=== PATIENT | male | born 1980 | race Two or more races ===

== ENCOUNTER 2021-02-19 06:12 | Emergency (ER) | payer SELFPAY ==
[2021-02-19] MEDS ORDERED: predniSONE 20 MG Tab PO ONE (07:55)
--- NOTE | 2021-02-19 07:58 | EDM.PDOC ---
ED HPI GENERAL MEDICAL PROBLEM - General Chief Complaint: Skin Complaint Stated Complaint: RASH ALL OVER LEGS AND BACK Time Seen by Provider: 02/19/21 07:17 - History of Present Illness INITIAL COMMENTS - FREE TEXT/NARRATIVE: CHIEF COMPLAINT(S): Rash HISTORY OF PRESENT ILLNESS: This is a 40-year-old man without any significant past medical history who comes to the emergency department with a chief complaint of rash. The patient states that for the last 5 days he has been experiencing a rash which is located on his bilateral thighs and his right lower back. He states that it is itching and there are little bumps. He denies any redness, fever or chills. He denies any injury. He states that he just recently switched his laundry detergent and he thinks this is the reason for it. He states that he has had this in the past when he changes dryer sheets. He denies any shortness of breath, wheezing, nausea or vomiting. He denies any other symptoms. REVIEW OF SYSTEMS: Constitutional: Denies fever, chills. Eyes: Denies eye pain Ears, Nose, Mouth, & Throat: Denies earache Cardiovascular: Denies chest pain Respiratory: Denies shortness of breath Gastrointestinal: Denies Nausea, vomiting, diarrhea, hematochezia. Genitourinary: Denies hematuria Skin: Positive for rash to bilateral thighs and right lower back MSK: Denies joint pain Neurological: Denies blurred vision Psychiatric: Denies depression PAST MEDICAL HISTORY: As per history of present illness and as reviewed below otherwise noncontributory. SURGICAL HISTORY: As per history of present illness and as reviewed below otherwise noncontributory. SOCIAL HISTORY: As per history of present illness and as reviewed below otherwise noncontributory. FAMILY HISTORY: As per history of present illness and as reviewed below otherwise noncontributory. EXAMINATION OF ORGAN SYSTEMS/BODY AREAS: Constitutional: Blood pressure is 115/74, heart rate 85, respiratory rate 20 with an oxygen saturation 95% on room air. Temperature 36.9 General: Overall well-appearing man in no acute distress. Psychiatric: Appropriate mood and affect. Eyes: No scleral icterus or conjunctival erythema ENMT: Moist mucous membranes. No pharyngeal erythema Cardiovascular: Regular, rate, and rhythm. No gallops, murmurs, or rubs. Bilateral upper extremity pulses symmetric and intact. No peripheral edema. No JVD. Respiratory: Lungs clear to auscultation bilaterally. No wheezes, rales, or rhonchi. Gastrointestinal: Soft, non-tender, non-distended. Normoactive bowel sounds Genitourinary: No suprapubic tenderness Musculoskeletal: Normal range of motion. Skin: There appears to be atopic dermatitis to the patient's bilateral thighs and right lower back with raised macules which are nontender. There is no warmth or erythema. Neurological: Alert, GCS 15 MEDICAL DECISION MAKING AND COURSE IN THE ED WITH INTERPRETATION/REVIEW OF DIAGNOSTIC STUDIES: This is a 40-year-old man and without any significant past medical history who comes to the emergency department with what appears to be atopic dermatitis likely secondary to detergent change. The patient is nontoxic- appearing no signs of cellulitis. At this time we will treat with hydrocortisone cream and prednisone. I did discuss return precautions with the patient. He was amenable to discharge at this time and had no further questions DISPOSITION: The patient was discharged home in stable condition. The patient w ill follow up with primary care physician in 3 to 5 days CONDITION: Fair PROCEDURES: None FINAL IMPRESSION(S)/DIAGNOSES: 1. Acute atopic dermatitis Kole Fair M.D. - Related Data Allergies Allergy/AdvReac Type Severity Reaction Status Date / Time No Known Allergies Allergy Verified 02/19/21 06:34 Home Meds: Home Meds Hydrocortisone [Hydrocortisone 1% Crm] 28.4 gm TOP ASDIRECTED #1 crm 02/19/21 [Rx] predniSONE [Prednisone] 50 mg PO DAILY #5 tablet 02/19/21 [Rx] Social & Family History - Tobacco Use Second Hand Smoke Exposure: No - Caffeine Use Caffeine Use: Reports: None - Recreational Drug Use Recreational Drug Use: No ED ROS GENERAL - Review of Systems Review Of Systems: See Below ED EXAM, SKIN/RASH Exam: See Below Course - Vital Signs Last Recorded V/S: Last Vital Signs Temp 36.9 C 02/19/21 06:31 Pulse 77 02/19/21 08:10 Resp 18 02/19/21 08:10 BP 115/66 02/19/21 08:10 Pulse Ox 96 02/19/21 08:10 - Orders/Labs/Meds Meds: Medications Discontinued Medications Generic Name Dose Route Start Last Admin Trade Name Freq PRN Reason Stop Dose Admin Prednisone 60 mg 02/19/21 07:55 02/19/21 08:09 Prednisone 20 Mg Tab PO 02/19/21 07:56 60 mg ONETIME ONE Administration Departure - Departure Time of Disposition: : Disposition: Home, Self-Care 01 Condition: Fair Clinical Impression: Atopic dermatitis - Discharge Information Prescriptions: Hydrocortisone [Hydrocortisone 1% Crm] 28.4 gm TOP ASDIRECTED #1 crm predniSONE [Prednisone] 50 mg PO DAILY #5 tablet Instructions: Atopic Dermatitis, Contact Dermatitis, [id number], Rash, Adult, [id number] Referrals: PCP,None [Primary Care Provider] - Forms: ED Department Discharge Additional Instructions: You were evaluated today on an emergent basis. At this time I do believe you are having allergic skin reaction secondary to the laundry detergent change. I recommend you switch back or use a low allergen no dye/sent detergent. I recommend use the prednisone daily for the next 5 days and use Benadryl 25 mg as needed for itching. This can be taken 3 times a day. If you have any redness, warmth, fever I like you to return to the emergency department. Otherwise follow-up with dermatology within 3 to 5 days. [facility] [address], [address] [place] [address] [phone] The patient is informed of any results of their evaluation and diagnostic workup and all questions are answered. They are given discharge instructions and return precautions. The patient is stable for discharge. The patient states they understand and agree with the plan and that they will return if their symptoms get worse or if they have any new concerns. The following information is given to patients seen in the emergency department who are being discharged to home. This information is to outline your options for follow-up care. We provide all patients seen in our emergency department with a follow-up referral. The need for follow-up, as well as the timing and circumstances, are variable de pending upon the specifics of your emergency department visit. If you don't have a primary care physician on staff, we will provide you with a referral. We always advise you to contact your personal physician following an emergency department visit to inform them of the circumstance of the visit and for follow-up with them and/or the need for any referrals to a consulting specialist. The emergency department will also refer you to a specialist when appropriate. This referral assures that you have the opportunity for follow-up care with a specialist. All of these measure are taken in an effort to provide you with optimal care, which includes your follow-up. Under all circumstances we always encourage you to contact your private physician who remains a resource for coordinating your care. When calling for follow-up care, please make the office aware that this follow-up is from your recent emergency room visit. If for any reason you are refused follow-up, please contact the [facility] Emergency Department at and asked to speak to the emergency department charge nurse. Sepsis Event Note (ED) - Evaluation Sepsis Screening Result: No Definite Risk
== END 2021-02-19 08:15 | disposition home or self-care (01) ==
LOC: MW.ED 06:12
DX: L20.9 Atopic dermatitis, unspecified (principal)
CPT/HCPCS: 99282; A9270

== ENCOUNTER 2021-03-13 21:48 | Emergency (ER) | payer SELFPAY ==
--- NOTE | 2021-03-13 21:57 | EDM.PDOC ---
ED HPI GENERAL MEDICAL PROBLEM - General Chief Complaint: Allergic Reaction Stated Complaint: ALLERGIC REACTION Time Seen by Provider: 03/13/21 21:53 Source of Information: Reports: Patient History Limitations: Reports: No Limitations - History of Present Illness INITIAL COMMENTS - FREE TEXT/NARRATIVE: 40-year-old male past medical history atopic dermatitis presents for rash. Patient notes rash for about the last month. He was seen in the emergency department and placed on steroid burst which initially helped but rash has since come back. He changed his laundry detergent but still notes the rash. It is over his entire body. Denies any difficulty breathing, shortness of breath, chest pain, nausea, vomiting. - Related Data Allergies Allergy/AdvReac Type Severity Reaction Status Date / Time No Known Allergies Allergy Verified 03/13/21 21:59 Home Meds: Home Meds predniSONE [Prednisone] See Taper PO DAILY #24 tablet 03/13/21 [Rx] Social & Family History - Caffeine Use Caffeine Use: Reports: None ED ROS ALLERGIC REACTION - Review of Systems Review Of Systems: Comprehensive ROS is negative, except as noted in HPI. ED EXAM GENERAL NO PERIP PULSE - Physical Exam Exam: See Below Exam Limited By: No Limitations General Appearance: Alert, WD/WN, No Apparent Distress Ears: Hearing Grossly Normal Throat/Mouth: Normal Voice, No Airway Compromise Head: Atraumatic, Normocephalic Respiratory/Chest: No Respiratory Distress, Lungs Clear, Normal Breath Sounds, No Accessory Muscle Use Cardiovascular: Normal Peripheral Pulses, Regular Rate, Rhythm Extremities: Normal Inspection Neurological: Alert, Normal Cognition, Normal Gait Psychiatric: Normal Affect, Normal Mood Skin Exam: Warm, Dry, Intact, Normal Color, Other (Diffuse urticarial rash) Course - Vital Signs Last Recorded V/S: Last Vital Signs Temp 98.3 F 03/13/21 21:55 Pulse 103 H 03/13/21 21:55 Resp 16 03/13/21 21:55 BP 120/75 03/13/21 21:55 Pulse Ox 94 L 03/13/21 22:12 - Orders/Labs/Meds Orders: Active Orders 24 hr Category Date Time Status Saline Lock Insert [OM.PC] Stat Oth 03/13/21 22:03 Ordered Meds: Medications Discontinued Medications Generic Name Dose Route Start Last Admin Trade Name Freq PRN Reason Stop Dose Admin Diphenhydramine HCl 50 mg 03/13/21 22:03 03/13/21 22:43 Diphenhydramine 50 Mg/Ml Sdv IVPUSH 03/13/21 22:04 50 mg ONETIME ONE Administration Famotidine 20 mg 03/13/21 22:03 03/13/21 22:43 Famotidine 20 Mg/2 Ml Sdv IVPUSH 03/13/21 22:04 20 mg ONETIME ONE Administration Sodium Chloride 1,000 mls @ 999 mls/hr 03/13/21 22:03 03/13/21 22:43 Normal Saline IV 03/13/21 23:03 999 mls/hr .Bolus ONE Administration Methylprednisolone Sodium Succinate 125 mg 03/13/21 22:03 03/13/21 22:43 Methylprednisolone Sodium Succinate 125 Mg/2 Ml Sdv IVPUSH 03/13/21 22:04 125 mg ONETIME ONE Administration - Re-Assessments/Exams Free Text/Narrative Re-Assessment/Exam: 03/13/21 22:04 Patient presents with diffuse urticarial rash. Will give IV steroids, Benadryl, Pepcid, IV fluid bolus. Will refer patient to dermatology for further work-up. Will discharge with steroids. Departure - Departure Time of Disposition: 03:06 Disposition: Home, Self-Care 01 Condition: Good Clinical Impression: Atopic dermatitis Qualifiers: Atopic dermatitis type: unspecified Qualified Code(s): L20.9 - Atopic dermatitis, unspecified - Discharge Information Prescriptions: predniSONE [Prednisone] See Taper PO DAILY #24 tablet Instructions: Allergies, Adult, [id number] Referrals: PCP,None [Primary Care Provider] - Forms: ED Department Discharge Sepsis Event Note (ED) - Focused Exam Vital Signs: Vital Signs Temp Pulse Resp BP Pulse Ox 03/13/21 22:12 94 L 03/13/21 21:55 98.3 F 103 H 16 120/75 96 - My Orders Last 24 Hours: My Active Orders 03/13/21 22:03 Saline Lock Insert [OM.PC] Stat - Assessment/Plan Last 24 Hours: My Active Orders 03/13/21 22:03 Saline Lock Insert [OM.PC] Stat
[2021-03-13] MEDS ORDERED: Sodium Chloride 0.9% 1,000 ML IV ONE (22:03)
[2021-03-13] MEDS ORDERED: diphenhydrAMINE 50 MG/ML SDV IVPUSH ONE (22:03)
[2021-03-13] MEDS ORDERED: Famotidine 20 MG/2 ML SDV IVPUSH ONE (22:03)
[2021-03-13] MEDS ORDERED: methylPREDNISolone Sodium Succinate 125 MG/2 ML SDV IVPUSH ONE (22:03)
== END 2021-03-13 23:12 | disposition home or self-care (01) ==
LOC: MW.ED 21:48
DX: L20.9 Atopic dermatitis, unspecified (principal)
CPT/HCPCS: 96374; 96375; 99282; J1200; J2930; J3490; J7030

== ENCOUNTER 2021-03-16 21:37 | Emergency (ER) | payer SELFPAY ==
[2021-03-16] MEDS ORDERED: Acetaminophen/oxyCODONE 325-5 MG Tab PO ONE (22:06)
[2021-03-16] MEDS ORDERED: Ibuprofen 600 MG Tab PO ONE (22:06)
--- NOTE | 2021-03-16 22:08 | EDM.PDOC ---
ED HPI GENERAL MEDICAL PROBLEM - General Chief Complaint: Upper Extremity Injury/Pain Stated Complaint: LT HANF PAIN Time Seen by Provider: 03/16/21 21:40 Source of Information: Reports: Patient History Limitations: Reports: No Limitations - History of Present Illness INITIAL COMMENTS - FREE TEXT/NARRATIVE: 40-year-old male presents for left upper extremity injury. Patient dropped a generator on to his left forearm. He tried to reach out and grab it causing it to fall on his arm. He felt it pull out his shoulder. He is now having pain in the hand, left forearm. 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 He is also having pain in his shoulder with difficulty abducting his shoulder secondary to pain. Left Hand Pain Score (Numeric/FACES): 7 - Related Data Allergies Allergy/AdvReac Type Severity Reaction Status Date / Time No Known Allergies Allergy Verified 03/16/21 21:58 Home Meds: Home Meds predniSONE [Prednisone] See Taper PO DAILY #24 tablet 03/13/21 [Rx] Past Medical History - Past Health History Medical/Surgical History: Denies Medical/Surgical History - Infectious Disease History Infectious Disease History: Reports: Chicken Pox, Measles - Past Surgical History Other Musculoskeletal Surgeries/Procedures:: Reconstructive surgery on knee. Righ knee X2 left knee X1 Social & Family History - Caffeine Use Caffeine Use: Reports: None - Recreational Drug Use Recreational Drug Use: No Review of Systems - Review of Systems Review Of Systems: Comprehensive ROS is negative, except as noted in HPI. ED EXAM, GENERAL - Physical Exam Exam: See Below Exam Limited By: No Limitations General Appearance: Alert, WD/WN, No Apparent Distress Ears: Hearing Grossly Normal Throat/Mouth: Normal Voice, No Airway Compromise Head: Atraumatic, Normocephalic Respiratory/Chest: No Respiratory Distress, Lungs Clear, Normal Breath Sounds, No Accessory Muscle Use Cardiovascular: Normal Peripheral Pulses, Regular Rate, Rhythm Extremities: Other (Swelling of dorsum of left hand with overlying abrasion to left middle knuckle, minimal tenderness to palpation of left forearm, no elbow tenderness palpation, no left upper arm tenderness palpation, left anterior AC joint tenderness to palpation) Neurological: Alert, Normal Cognition, Normal Gait Psychiatric: Normal Affect, Normal Mood Skin Exam: Warm, Dry, Intact, Normal Color Course - Vital Signs Last Recorded V/S: Last Vital Signs Temp 97.9 F 03/16/21 21:59 Pulse 86 03/16/21 21:59 Resp 16 03/16/21 21:59 BP 126/79 03/16/21 21:59 Pulse Ox 98 03/16/21 21:59 - Orders/Labs/Meds Orders: Active Orders 24 hr Category Date Time Status Octyl 2-Cyanoacrylate [Dermabond Advance] Med 03/16/21 23:54 Once 1 applic TOP ONETIME ONE Medication Orders Octyl Cyanoacrylate (Octyl 2-Cyanoacrylate 1 Tube) 1 applic TOP ONETIME ONE Stop: 03/16/21 23:55 Meds: Medications Generic Name Dose Route Start Last Admin Trade Name Freq PRN Reason Stop Dose Admin Octyl Cyanoacrylate 1 applic 03/16/21 23:54 Octyl 2-Cyanoacrylate 1 Tube TOP 03/16/21 23:55 ONETIME ONE Discontinued Medications Generic Name Dose Route Start Last Admin Trade Name Freq PRN Reason Stop Dose Admin Ibuprofen 600 mg 03/16/21 22:06 03/16/21 22:10 Ibuprofen 600 Mg Tab PO 03/16/21 22:07 600 mg ONETIME ONE Administration Octyl Cyanoacrylate Confirm 03/16/21 23:51 03/16/21 23:55 Octyl 2-Cyanoacrylate 1 Applic Tube Administered 03/16/21 23:52 Not Given Dose 1 applic .ROUTE .STK-MED ONE Octyl Cyanoacrylate Confirm 03/16/21 23:53 Octyl 2-Cyanoacrylate 1 Tube Administered 03/16/21 23:54 Dose 1 applic .ROUTE .STK-MED ONE Oxycodone/Acetaminophen 1 tab 03/16/21 22:06 03/16/21 22:11 Acetaminophen/Oxycodone 325-5 Mg Tab PO 03/16/21 22:07 1 tab ONETIME ONE Administration - Re-Assessments/Exams Free Text/Narrative Re-Assessment/Exam: 03/16/21 22:08 Patient's symptoms are concerning for a hand fracture versus contusion. I am also concerned for a rotator cuff muscle injury. We will will get x-rays of the hand, forearm, shoulder. I told patient that the shoulder x-ray will not definitively rule out a rotator cuff muscle injury and he may need to follow-up for an MRI with his primary care physician. Patient understands. 03/16/21 23:56 Nothing broken on imaging. I did offer a sling for comfort but patient declines. We did Dermabond to the abrasion on the knuckle. Departure - Departure Time of Disposition: 23:56 Disposition: Home, Self-Care 01 Condition: Good Clinical Impression: Abrasion Contusion of hand Qualifiers: Encounter type: initial encounter Laterality: left Qualified Code(s): S60.222A - Contusion of left hand, initial encounter - Discharge Information Instructions: Contusion, [id number] Referrals: PCP,None [Primary Care Provider] - Forms: ED Department Discharge Additional Instructions: The following information is given to patients seen in the emergency department who are being discharged to home. This information is to outline your options for follow-up care. We provide all patients seen in our emergency department with a follow-up referral. The need for follow-up, as well as the timing and circumstances, are variable depending upon the specifics of your emergency department visit. If you don't have a primary care physician on staff, we will provide you with a referral. We always advise you to contact your personal physician following an emergency department visit to inform them of the circumstance of the visit and for follow-up with them and/or the need for any referrals to a consulting specialist. The emergency department will also refer you to a specialist when appropriate. This referral assures that you have the opportunity for follow-up care with a specialist. All of these measure are taken in an effort to provide you with optimal care, which includes your follow-up. Under all circumstances we always encourage you to contact your private physician who remains a resource for coordinating your care. When calling for follow-up care, please make the office aware that this follow-up is from your recent emergency room visit. If for any reason you are refused follow-up, please contact the [facility] Emergency Department at and asked to speak to the emergency department charge nurse. Please follow up with your primary care physician. If you do not have a primary care physician, see below: [facility] [address] [place] [id number] [facility] [address] [place], [place] [id number] [facility] [address] [place] [id number] Sepsis Event Note (ED) - Evaluation Sepsis Screening Result: No Definite Risk - Focused Exam Vital Signs: Vital Signs Temp Pulse Resp BP Pulse Ox 03/16/21 21:59 97.9 F 86 16 126/79 98 - My Orders Last 24 Hours: My Active Orders 03/16/21 23:54 Octyl 2-Cyanoacrylate [Dermabond Advance] 1 applic TOP ONETIME ONE - Assessment/Plan Last 24 Hours: My Active Orders 03/16/21 23:54 Octyl 2-Cyanoacrylate [Dermabond Advance] 1 applic TOP ONETIME ONE
--- NOTE | 2021-03-16 23:42 | CR ---
Indication: Trauma Technique: Two views left forearm Comparison: None Findings: Bones: Alignment is normal. No fractures or bone lesions. Joint spaces: Unremarkable. Soft tissues: Two tiny foreign bodies in the soft tissues adjacent to the proximal 3rd of the ulna, best seen on the lateral view. Impression: No acute fracture or subluxation. Two tiny foreign bodies in the proximal forearm of unknown acuity. Dictated by Rere Boogie MD @ 03/16/2021 11:40:51 PM (Electronically Signed)
--- NOTE | 2021-03-16 23:44 | CR ---
Indication: Trauma Technique: Three left hand Comparison: None Findings: Bones: Alignment is normal. No fractures or bone lesions. Joint spaces: Unremarkable. Soft tissues: Unremarkable. Impression: Negative. Dictated by Rere Boogie MD @ 03/16/2021 11:42:56 PM (Electronically Signed)
--- NOTE | 2021-03-16 23:46 | CR ---
Indication: Trauma Technique: Four views left shoulder Comparison: None Findings: Bones: Alignment is normal. No fractures or bone lesions. Joint spaces: Unremarkable. Soft tissues: Unremarkable. Impression: Negative. Dictated by Rere Boogie MD @ 03/16/2021 11:44:45 PM (Electronically Signed)
[2021-03-16] MEDS ORDERED: Octyl 2-Cyanoacrylate 1 APPLIC TUBE ONE (23:51)
[2021-03-16] MEDS ORDERED: Octyl 2-Cyanoacrylate 1 Tube ONE (23:53)
[2021-03-16] MEDS ORDERED: Octyl 2-Cyanoacrylate 1 Tube TOP ONE (23:54)
== END 2021-03-17 00:03 | disposition home or self-care (01) ==
LOC: MW.ED 21:37
DX: S60.222A Contusion of left hand, initial encounter (principal); W20.8XXA Other cause of strike by thrown, projected or falling object, initial encounter
CPT/HCPCS: 73030; 73090; 73130; 99283; A9270

== ENCOUNTER 2021-03-20 21:16 | Emergency (ER) | payer SELFPAY ==
[2021-03-20] MEDS ORDERED: Ketorolac 15 MG/ML SDV IM ONE (22:22)
[2021-03-20] MEDS ORDERED: Cyclobenzaprine 10 MG Tab PO ONE (22:24)
--- NOTE | 2021-03-20 23:40 | CT ---
INDICATION: Pain following injury. COMPARISON: None available TECHNIQUE: CT examination of the lumbar spine is performed with spiral technique without contrast. Two mm thick axial, sagittal and coronal reconstructions were made. Please note that all CT scans at this facility use dose modulation, iterative reconstruction, and/or weight-based dosing when appropriate to reduce radiation dose to as low as reasonably achievable. FINDINGS: : There is mild scoliosis of the lumbar spine convex towards the left with the apex at the L2 level. The vertebral bodies are normal in height and they are in anatomic alignment. There is no sign of fracture or subluxation. There is no sign of fracture or subluxation of the lumbar vertebral bodies. The vertebral bodies are normal in height and they are in anatomic alignment. There is moderate left L4-5 and moderate right L5-S1 disc degenerative disease related to the scoliosis. The rest of the intervertebral discs are normal in height. No definite disc bulge or herniation is seen, but sensitivity is limited on CT. Incidental note is made of a bubbly sclerotic lesion in the right iliac wing adjacent to the midportion of the sacroiliac joint, probably a bone infarct. There are tiny, nonobstructive calculi in both kidneys, in the lower pole on the right in the interpolar region on the left. The rest of the visualized abdominal viscera is normal in appearance. IMPRESSION: No sign acute osseous injury to the lumbar spine. Moderate disc degenerative disease at L4-5 and L5-S1 related to mild scoliosis of the upper lumbar spine convex towards the left. Minimal nonobstructive bilateral nephrolithiasis. Please note that all CT scans at this facility use dose modulation, iterative reconstruction, and/or weight-based dosing when appropriate to reduce radiation dose to as low as reasonably achievable. Dictated by Fabrice Peña MD @ 03/20/2021 11:38:55 PM (Electronically Signed)
--- NOTE | 2021-03-20 23:44 | CT ---
INDICATION: Pain in the pelvis after pulling injury. COMPARISON: CT of the lumbar spine from today. TECHNIQUE: CT examination of the pelvis was performed without contrast enhancement using 3 mm thick axial sections from the superior iliac crest through the pubic symphysis. Oral contrast was not administered. Please note that all CT scans at this facility use dose modulation, iterative reconstruction, and/or weight-based dosing when appropriate to reduce radiation dose to as low as reasonably achievable. FINDINGS: : The bony pelvis is intact, with no sign of fracture or destructive lesion. Incidental note is made of a bubbly sclerotic lesion in the right iliac wing adjacent to the midportion of the right sacroiliac joint, consistent with a bone infarct. A small bone island is seen in the left iliac wing adjacent to the sacroiliac joint. The sacroiliac joints and pubic symphysis are normal in appearance. The hips are normal in appearance. There is no sign of degenerative disease. The mild scoliosis of the lumbar spine convex towards the left, and moderate disc degenerative disease at L4-5 and L5-S1 related to the scoliosis, is described on the accompanying CT of the lumbar spine. In the pelvis, the appendix is normal in appearance with no sign of inflammatory process. There is minimal sigmoid diverticulosis without evidence of diverticulitis. The loops of small bowel and colon in the pelvis are otherwise normal in appearance. The prostate is mildly enlarged and is otherwise for normal in appearance. The urinary bladder is normal in appearance. There is no sign of pelvic or inguinal mass or adenopathy. There is no sign of free fluid or free air in the pelvis. IMPRESSION: No sign of acute osseous injury to the pelvis or hips. Moderate disc degenerative disease in the inferior lumbar spine related to mild scoliosis convex towards the left. Mild sigmoid diverticulosis with no sign of diverticulitis. Mild enlargement of the prostate. Please note that all CT scans at this facility use dose modulation, iterative reconstruction, and/or weight-based dosing when appropriate to reduce radiation dose to as low as reasonably achievable. Dictated by Fabrice Peña MD @ 03/20/2021 11:43:53 PM (Electronically Signed)
--- NOTE | 2021-03-21 00:53 | EDM.PDOC ---
ED HPI GENERAL MEDICAL PROBLEM - General Chief Complaint: Back Pain or Injury Stated Complaint: BACK INJURY Time Seen by Provider: 03/20/21 21:42 - History of Present Illness INITIAL COMMENTS - FREE TEXT/NARRATIVE: CHIEF COMPLAINT(S): Back pain HISTORY OF PRESENT ILLNESS: This is a 40-year-old man without any past medical history who presents to the emergency department with a chief complaint of back pain. Patient states that this morning while at work there was an approximate 400 pound piece of metal that he tried to move by pushing it. He states that after he yanked on it he felt something pop in his back and he has been experiencing bilateral back pain which she rates as 10 out of 10 and describes it as spasms. He denies any bowel incontinence, urinary incontinence or saddle anesthesia. States that anytime he moves it seems to worsen. There are no relieving factors. He denies any fevers, IV drug use or any other symptoms. REVIEW OF SYSTEMS: Constitutional: Denies fever, chills. Eyes: Denies eye pain Ears, Nose, Mouth, & Throat: Denies earache Cardiovascular: Denies chest pain Respiratory: Denies shortness of breath Gastrointestinal: Denies Nausea, vomiting, diarrhea, hematochezia. Genitourinary: Denies hematuria Skin:Denies a rash MSK: Positive for bilateral back pain and spasm Neurological: Denies blurred vision, numbness, tingling, weakness Psychiatric: Denies depression PAST MEDICAL HISTORY: As per history of present illness and as reviewed below otherwise noncontributory. SURGICAL HISTORY: As per history of present illness and as reviewed below otherwise noncontributory. SOCIAL HISTORY: As per history of present illness and as reviewed below otherwise noncontributory. FAMILY HISTORY: As per history of present illness and as reviewed below otherwise noncontributory. EXAMINATION OF ORGAN SYSTEMS/BODY AREAS: Constitutional: Blood pressure was 136/72, heart rate 101, respiratory rate 16 with an oxygen saturation of 93% on room air. Temperature 36.9 General: Young man who is sleeping comfortably on the stretcher when awakens complains of spasms in his back Psychiatric: Appropriate mood and affect. Eyes: No scleral icterus or conjunctival erythema ENMT: Moist mucous membranes. No pharyngeal erythema Cardiovascular: Regular, rate, and rhythm. No gallops, murmurs, or rubs. Bilateral upper extremity pulses symmetric and intact. No peripheral edema. No JVD. Respiratory: Lungs clear to auscultation bilaterally. No wheezes, rales, or rhonchi. Gastrointestinal: Soft, non-tender, non-distended. Normoactive bowel sounds Genitourinary: No suprapubic tenderness postvoid residual is 0 mL musculoskeletal: Normal range of motion. There is bilateral paraspinal lumbar tenderness. There is also some sacral tenderness. Negative straight leg test. Skin: No lesions or abrasions. Neurological: Alert, GCS 15 strength and sensation grossly intact in upper and lower extremities bilaterally MEDICAL DECISION MAKING AND COURSE IN THE ED WITH INTERPRETATION/REVIEW OF DIAGNOSTIC STUDIES: This is a 40-year-old man without any significant past medical history who presents to the emergency department with what appears to be bilateral spasmodic muscle pain of his lower back. Given his amount of pain will obtain a lumbar and pelvis CT to evaluate for any fractures or dislocations. We will provide the patient with Toradol and Flexeril for pain relief and reevaluate. DDx: Fracture, dislocation, muscle spasm/pain The radiological images were viewed by myself along with reading the report from the radiologist. Pelvic CT without contrast reveals no sign of acute osseous injury to the pelvis or hips. 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 Lumbar spine CT does not reveal any fracture or dislocation. After imaging I did discuss the results with the patient. At this time I did discuss symptomatic treatment at home. He was amenable to discharge at this time and had no further questions. He was given strict return precautions. DISPOSITION: The patient was discharged home in stable condition. The patient will follow up with PCP within 3-5 days CONDITION: Fair PROCEDURES: None FINAL IMPRESSION(S)/DIAGNOSES: 1. Acute lumbar strain Kole Fair M.D. Bilateral Lower Back Pain Score (Numeric/FACES): 10 - Related Data Allergies Allergy/AdvReac Type Severity Reaction Status Date / Time No Known Allergies Allergy Verified 03/20/21 21:36 Home Meds: Home Meds predniSONE [Prednisone] See Taper PO DAILY #24 tablet 03/13/21 [Rx] Acetaminophen [Tylenol Extra Strength] 1,000 mg PO Q6HR #56 tablet 03/21/21 [Rx] Ibuprofen 600 mg PO Q6HR #28 tablet 03/21/21 [Rx] methocarbamoL [Methocarbamol] 1,500 mg PO TID #42 tablet 03/21/21 [Rx] Past Medical History - Past Health History Medical/Surgical History: Denies Medical/Surgical History - Infectious Disease History Infectious Disease History: Reports: Chicken Pox, Measles - Past Surgical History Other Musculoskeletal Surgeries/Procedures:: Reconstructive surgery on knee. Righ knee X2 left knee X1 Social & Family History - Caffeine Use Caffeine Use: Reports: None - Recreational Drug Use Recreational Drug Use: No ED ROS GENERAL - Review of Systems Review Of Systems: See Below ED EXAM, GENERAL - Physical Exam Exam: See Below Course - Vital Signs Last Recorded V/S: Last Vital Signs Temp 36.6 C 03/21/21 01:19 Pulse 98 03/21/21 01:19 Resp 16 03/21/21 01:19 BP 123/64 03/21/21 01:19 Pulse Ox 94 L 03/21/21 01:19 - Orders/Labs/Meds Meds: Medications Discontinued Medications Generic Name Dose Route Start Last Admin Trade Name Nathanielq PRN Reason Stop Dose Admin Cyclobenzaprine HCl 10 mg 03/20/21 22:24 03/20/21 22:54 Cyclobenzaprine 10 Mg Tab PO 03/20/21 22:25 10 mg ONETIME ONE Administration Ketorolac Tromethamine 15 mg 03/20/21 22:22 03/20/21 22:54 Ketorolac 15 Mg/Ml Sdv IM 03/20/21 22:23 15 mg ONETIME ONE Administration Departure - Departure Time of Disposition: 00:52 Disposition: Home, Self-Care 01 Condition: Fair Clinical Impression: Lumbar strain, Muscle spasm - Discharge Information *PRESCRIPTION DRUG MONITORING PROGRAM REVIEWED*: No *COPY OF PRESCRIPTION DRUG MONITORING REPORT IN PATIENT MIGUEL: No Prescriptions: Ibuprofen 600 mg PO Q6HR #28 tablet methocarbamoL [Methocarbamol] 1,500 mg PO TID #42 tablet Acetaminophen [Tylenol Extra Strength] 1,000 mg PO Q6HR #56 tablet Instructions: Muscle Cramps and Spasms, [id number], Muscle Strain, [id number], Lumbar Strain Referrals: PCP,None [Primary Care Provider] - Forms: ED Department Discharge Additional Instructions: You were evaluated today on an emergent basis. At this time I do believe you are experiencing musculoskeletal spasm. I recommend use Tylenol and Motrin alternating around the clock and use Robaxin 3 times a day which is a muscle relaxer. I recommend that you use a heating pad to the affected area 20 minutes 4 times a day. I would like you to follow-up with primary care physician in 3 to 5 days. If you have any worsening symptoms such as fever, defecating on yourself, urinating on yourself I would like you to return to the emergency department. Please use: Tylenol 500-1000mg every 6 hours (DO NOT TAKE MORE THAN 4000mg in 1 day) Ibuprofen 400mg every 6 hours (Take with food as it can cause ulcers, GI upset) Example schedule: 8:00 AM (Tylenol 500-1000mg) 11:00 AM (Ibuprofen 400mg) 2:00 PM (Tylenol 500-1000mg) 5:00 PM (Ibuprofen 400mg) In addition to Tylenol and Motrin you may use over the counter creams such as Voltaren Cream or Lidocaine Cream (Lidoderm) as needed 4 times a day for symptomatic relief. [facility] [address] [place] [address] [place] [address] The patient is informed of any results of their evaluation and diagnostic workup and all questions are answered. They are given discharge instructions and return precautions. The patient is stable for discharge. The patient states they understand and agree with the plan and that they will return if their symptoms get worse or if they have any new concerns. The following information is given to patients seen in the emergency department who are being discharged to home. This information is to outline your options for follow-up care. We provide all patients seen in our emergency department with a follow-up referral. The need for follow-up, as well as the timing and circumstances, are variable depending upon the specifics of your emergency department visit. If you don't have a primary care physician on staff, we will provide you with a referral. We always advise you to contact your personal physician following an emergency department visit to inform them of the circumstance of the visit and for follow-up with them and/or the need for any referrals to a consulting specialist. The emergency department will also refer you to a specialist when appropriate. This referral assures that you have the opportunity for follow-up care with a specialist. All of these measure are taken in an effort to provide you with optimal care, which includes your follow-up. Under all circumstances we always encourage you to contact your private physician who remains a resource for coordinating your care. When calling for follow-up care, please make the office aware that this follow-up is from your recent emergency room visit. If for any reason you are refused follow-up, please contact the [facility] Emergency Department at and asked to speak to the emergency department charge nurse. Sepsis Event Note (ED) - Evaluation Sepsis Screening Result: No Definite Risk
== END 2021-03-21 01:38 | disposition home or self-care (01) ==
LOC: MW.ED 21:16
DX: S39.012A Strain of muscle, fascia and tendon of lower back, initial encounter (principal); M62.830 Muscle spasm of back; X50.0XXA Overexertion from strenuous movement or load, initial encounter; Y99.0 Civilian activity done for income or pay
CPT/HCPCS: 72131; 72192; 96372; 99283; A9270; J1885

== ENCOUNTER 2021-03-31 11:48 | Emergency (ER) | payer SELFPAY | END 2021-03-31 13:57 | disposition left against medical advice (07) | LOC: MW.ED 11:48 | DX: Z53.21 Procedure and treatment not carried out due to patient leaving prior to being seen by health care provider (principal) ==